=== PATIENT | male | born 2000 | race Two or more races ===

== ENCOUNTER 2024-02-10 17:54 | Emergency (ER) | payer OTHER ==
[~2024-02-10] VITALS: Ht 185.4 cm; Wt 99.8 kg
[2024-02-10 18:13] VITALS: BP 135/79; O2SAT 100
[2024-02-10] MEDS ORDERED: KETOROLAC TROMETHAMINE 60 MG VIAL IM ONE (19:45)
[2024-02-10] MEDS ORDERED: ORPHENADRINE CITRATE 30 MG/ML AMPUL IM ONE (19:45)
[2024-02-10] MEDS ORDERED: DEXAMETHASONE SODIUM PHOSPHATE 4 MG/ML VIAL IM ONE (19:45)
[2024-02-10] MEDS ORDERED: NORFLEX100MG PO (19:48)
[2024-02-10] MEDS ORDERED: IBU600 MG PO (19:48)
== END 2024-02-10 20:48 | disposition home or self-care (01) ==
LOC: ER 17:56
DX: S39.82XA Other specified injuries of lower back, initial encounter (principal); V49.88XA Car occupant (driver) (passenger) injured in other specified transport accidents, initial encounter; Y93.89 Activity, other specified; Y92.89 Other specified places as the place of occurrence of the external cause; Y99.8 Other external cause status; M54.50 Low back pain, unspecified